=== PATIENT | female | born 1965 | race African-American/Black ===

== ENCOUNTER 2016-04-17 01:50 | Emergency (ER) | payer MEDICAID ==
[~2016-04-17] VITALS: Ht 162.6 cm; Wt 81.6 kg
[2016-04-17 02:41] LABS: Basophils # (auto) 0.1 uL; Basophils % (auto) 1.7 % (0.0-2.0); Eosinophils # (auto) 0.1 uL; Eosinophils % (auto) 0.9 % (0.0-7.0); Hematocrit 43.2 % (36.0-46.0); Hemoglobin 14.6 g/dL (12.2-16.2); Lymphocytes # (auto) 1.9 uL; Lymphocytes % (auto) 24.3 % (10.0-50.0); Mean Corpuscular Hemoglobin 30.6 pg (28.0-32.0); Mean Corpuscular Hgb Conc. 33.8 g/dL (32.0-36.0); Mean Corpuscular Volume 90.5 fL (80.0-100.0); Mean Platelet Volume 8.6 fL (7.4-10.4); Monocytes # (auto) 0.5 uL; Monocytes % (auto) 6.9 % (0.0-12.0); Neutrophils # (auto) 5.4 uL; Neutrophils % (auto) 66.2 % (37.0-80.0); Platelet Count (auto) 264 10^3/uL (140-450); Red Cell Distribution Width 12.4 % (11.6-16.0)
[2016-04-17 03:01] LABS: INR 1.14 (0.9-1.15); Partial Thromboplastin Time 26.5 sec (22.64-33.71); Prothrombin Time 11.7 sec (9.37-12.3)
[2016-04-17 03:06] LABS: Albumin 3.1 g/dL (3.4-5.0); Anion Gap 10 (5-15); Aspartate Aminotransferase 14 U/L (15-37); Blood Urea Nitrogen 5 mg/dL (7-18); Carbon Dioxide 27 mmol/L (21-32); Chloride 106 mmol/L (98-107); GFR African American 94 mL/min; GFR Non-African American 78 mL/min; Glucose 96 mg/dL (74-106); Potassium 3.1 mmol/L (3.5-5.1); Sodium 143 mmol/L (136-145)
[2016-04-17 03:11] LABS: Alkaline Phosphatase 126 U/L (45-117); Bilirubin, Total 0.4 mg/dL (0.2-1.0); Total Protein 7.2 g/dL (6.4-8.2)
[2016-04-17] MEDS ORDERED: ASPirin 81 mg TAB PO ONE (04:15)
[2016-04-17] MEDS ORDERED: ACETAMINOPHEN 325 MG TAB PO ONE (04:15)
[2016-04-17 04:19] LABS: B-Type Natriuretic Peptide 48.6 pg/mL (0-100); Temperature: 20.3 C (20.0-25.0)
[2016-04-17 06:36] VITALS: BP 165/97
== END 2016-04-17 08:38 | disposition home or self-care (01) ==
LOC: EDBD 01:50 → ER 01:52
DX: R07.89 Other chest pain (principal); I10 Essential (primary) hypertension; F17.210 Nicotine dependence, cigarettes, uncomplicated; F41.9 Anxiety disorder, unspecified; R55 Syncope and collapse
CPT/HCPCS: 36415; 70450; 71010; 80053; 83735; 83880; 84443; 84484; 85025; 85610; 85730; 93005; 94761

== ENCOUNTER 2018-05-13 00:37 | Emergency (ER) | payer MEDICAID ==
[~2018-05-13] VITALS: Ht 162.6 cm; Wt 68.0 kg
[2018-05-13 01:25] LABS: Basophils # (auto) 0.1 uL; Eosinophils # (auto) 0.2 uL; Eosinophils % (auto) 2.7 % (0.0-7.0); Hematocrit 42.6 % (36.0-46.0); Hemoglobin 14.4 g/dL (12.2-16.2); Lymphocytes # (auto) 2.9 uL; Lymphocytes % (auto) 40.4 % (10.0-50.0); Mean Corpuscular Hemoglobin 30.7 pg (28.0-32.0); Mean Corpuscular Hgb Conc. 33.8 g/dL (32.0-36.0); Mean Corpuscular Volume 90.8 fL (80.0-100.0); Monocytes # (auto) 0.6 uL; Monocytes % (auto) 7.9 % (0.0-12.0); Neutrophils # (auto) 3.5 uL; Nucleated Red Blood Cells % 0.1 %; Platelet Count (auto) 272 10^3/uL (140-450); Red Blood Cells 4.69 10^6/uL (4.0-5.20); Red Cell Distribution Width 13.8 % (11.8-14.3); White Blood Cell 7.3 10^3/uL (4.4-10.8)
[2018-05-13 01:46] LABS: Alanine Aminotransferase 20 U/L (13-56); Albumin 3.3 g/dL (3.4-5.0); Anion Gap 6 (5-15); Aspartate Aminotransferase 21 U/L (15-37); BUN/Creatinine Ratio 10.3; Blood Urea Nitrogen 9 mg/dL (7-18); Calcium 8.6 mg/dL (8.5-10.1); Carbon Dioxide 27 mmol/L (21-32); Chloride 104 mmol/L (98-107); GFR African American 88 mL/min; GFR Non-African American 73 mL/min; Glucose 103 mg/dL (74-106); Potassium 3.6 mmol/L (3.5-5.1); Sodium 137 mmol/L (136-145)
[2018-05-13 01:50] LABS: Alkaline Phosphatase 138 U/L (45-117); Bilirubin, Total 0.4 mg/dL (0.2-1.0); Total Protein 7.4 g/dL (6.4-8.2)
[2018-05-13 08:20] VITALS: BP 163/91
== END 2018-05-13 08:21 | disposition home or self-care (01) ==
LOC: EDUNIT# 00:37 → EDBD 00:37 → ER 00:40
DX: J44.9 Chronic obstructive pulmonary disease, unspecified (principal); I10 Essential (primary) hypertension; F17.210 Nicotine dependence, cigarettes, uncomplicated; R42 Dizziness and giddiness; Z90.49 Acquired absence of other specified parts of digestive tract
CPT/HCPCS: 36415; 71045; 80053; 84484; 85025; 93005

== ENCOUNTER 2021-03-19 17:49 | Inpatient (IN) | payer MEDICAID ==
[~2021-03-19] VITALS: Ht 167.6 cm; Wt 52.2 kg
[2021-03-19 19:45] LABS: Basophils # (auto) 0.1 10 ^3/uL (0-0.2); Eosinophils # (auto) 0.1 10 ^3/uL (0-0.8); Lymphocytes # (auto) 2.5 10 ^3/uL (0.4-5.4); Monocytes # (auto) 0.4 10 ^3/uL (0-1.3); Neutrophils # (auto) 2.1 10 ^3/uL (1.6-8.6); White Blood Cell 5.1 10^3/uL (4.4-10.8)
[2021-03-19 19:47] LABS: Basophils % (auto) 1.2 % (0.0-2.0); Eosinophils % (auto) 2.2 % (0.0-7.0); Hematocrit 36.3 % (36.0-46.0); Hemoglobin 11.8 g/dL (12.2-16.2); Lymphocytes % (auto) 48.3 % (10.0-50.0); Mean Corpuscular Hemoglobin 24.3 pg (28.0-32.0); Mean Corpuscular Hgb Conc. 32.4 g/dL (32.0-36.0); Mean Corpuscular Volume 74.9 fL (80.0-100.0); Monocytes % (auto) 8.2 % (0.0-12.0); Neutrophils % (auto) 40.1 % (37.0-80.0); Nucleated Red Blood Cells % 0.1 %; Red Blood Cells 4.85 10^6/uL (4.0-5.20)
[2021-03-19 19:51] LABS: Red Cell Distribution Width 20.1 % (11.8-14.3)
[2021-03-19 20:03] LABS: Albumin 3.4 g/dL (3.4-5.0); BUN/Creatinine Ratio 2.7; Calcium 8.6 mg/dL (8.5-10.1)
[2021-03-19 20:06] LABS: Bilirubin, Total 0.4 mg/dL (0.2-1.0); Total Protein 7.8 g/dL (6.4-8.2)
[2021-03-19 20:34] LABS: Potassium 2.5 mmol/L (3.5-5.1)
[2021-03-19] MEDS ORDERED: POTASSIUM CHL 20 Meq TABLET PO ONE (20:45)
[2021-03-19] MEDS: POTASSIUM CHL 10MEQ/50ML 50 ML IV SCH ×2 (21:30→22:55)
[2021-03-19] MEDS ORDERED: HYDROcodone-ACET 5/325MG TAB PO ONE (22:15)
[2021-03-20] MEDS ORDERED: MORPHINE SULFATE INJECTION 2 MG/ML SYRG IV PRN
[2021-03-20] MEDS ORDERED: ACETAMINOPHEN 325 MG TAB PO PRN
[2021-03-20] MEDS ORDERED: ONDANSETRON HCL 4 MG/2 ML VIAL IV PRN
[2021-03-20] MEDS ORDERED: NITROGLYCERIN 0.4 MG SL TAB SL PRN
[2021-03-20] MEDS ORDERED: DOCUSATE SOD 100 MG CAP PO PRN
[2021-03-20] MEDS: POTASSIUM CHL 10MEQ/50ML 50 ML IV SCH ×4 (04:28→09:11)
[2021-03-20] MEDS: HYDROcodone-ACET 5/325MG TAB PO PRN ×2 (04:37→12:50)
[2021-03-20 05:03] VITALS: BP 171/90
[2021-03-20] MEDS ORDERED: TRAM50TA2 PO (05:41)
[2021-03-20] MEDS ORDERED: HYDR-4798 PO (05:41)
[2021-03-20] MEDS ORDERED: FLUT110A IN (05:41)
[2021-03-20] MEDS ORDERED: GABA300C10 PO (05:41)
[2021-03-20] MEDS ORDERED: ATOR20TA PO (05:41)
[2021-03-20] MEDS ORDERED: AMLO-489 PO (05:41)
[2021-03-20] MEDS: LABETALOL HCL 5 MG/ML 4ML SYRINGE IV PRN ×2 (08:29→18:06)
[2021-03-20] MEDS ORDERED: POTASSIUM CHL 10MEQ/50ML 50 ML IV SCH (08:45)
[2021-03-20 09:06] VITALS: BP 192/98
[2021-03-20] MEDS: ZINC SULFATE 220mg CAP or TAB PO SCH (09:12)
[2021-03-20] MEDS: ENOXAPARIN SOD 40 MG/0.4 ML SYRINGE SC SCH (09:13)
[2021-03-20] MEDS: ASCORBIC ACID 500 MG TAB PO SCH ×2 (09:13→21:04)
[2021-03-20] MEDS: MULTIPLE VITAMIN TAB PO SCH (09:13)
[2021-03-20 11:49] VITALS: BP 176/85
[2021-03-20] MEDS: diphenhdrAMINE HCL 25 MG CAP PO SCH ×2 (14:45→21:04)
[2021-03-20] MEDS: GABAPENTIN 300 MG CAP PO SCH ×2 (14:45→21:04)
[2021-03-20] MEDS: NIFEdipine ER 30 MG TAB PO SCH (14:46)
[2021-03-20 16:32] VITALS: BP 179/93
[2021-03-20] MEDS: HYDROcodone-ACET 10/325MG TAB PO PRN (20:37)
[2021-03-20] MEDS: FAMOTIDINE (10MG/ML) 2ML VL IV SCH (21:03)
[2021-03-20] MEDS: hydrALAZINE HCL 25 MG TAB PO SCH (21:04)
[2021-03-20 22:00] VITALS: BP 143/73
[2021-03-21 05:00] VITALS: BP 141/80
[2021-03-21 07:13] LABS: Basophils # (auto) 0.1 10 ^3/uL (0-0.2); Basophils % (auto) 0.9 % (0.0-2.0); Eosinophils # (auto) 0.1 10 ^3/uL (0-0.8); Eosinophils % (auto) 1.9 % (0.0-7.0); Hematocrit 35.8 % (36.0-46.0); Hemoglobin 11.2 g/dL (12.2-16.2); Lymphocytes # (auto) 2.3 10 ^3/uL (0.4-5.4); Lymphocytes % (auto) 34.3 % (10.0-50.0); Mean Corpuscular Hgb Conc. 31.2 g/dL (32.0-36.0); Monocytes # (auto) 0.6 10 ^3/uL (0-1.3); Monocytes % (auto) 9.6 % (0.0-12.0); Neutrophils # (auto) 3.5 10 ^3/uL (1.6-8.6); Neutrophils % (auto) 53.3 % (37.0-80.0); White Blood Cell 6.6 10^3/uL (4.4-10.8)
[2021-03-21 07:18] LABS: Mean Corpuscular Hemoglobin 23.3 pg (28.0-32.0); Mean Corpuscular Volume 74.5 fL (80.0-100.0); Red Cell Distribution Width 20.6 % (11.8-14.3)
[2021-03-21 07:54] LABS: Albumin 3.1 g/dL (3.4-5.0); BUN/Creatinine Ratio 4.3; Bilirubin, Total 0.4 mg/dL (0.2-1.0); Calcium 8.4 mg/dL (8.5-10.1); Total Protein 7.3 g/dL (6.4-8.2)
[2021-03-21] MEDS: HYDROcodone-ACET 10/325MG TAB PO PRN ×4 (07:55→22:51)
[2021-03-21 08:01] LABS: Potassium 2.1 mmol/L (3.5-5.1)
[2021-03-21] MEDS ORDERED: POTASSIUM CHL 20 Meq TABLET PO ONE (08:15)
[2021-03-21 08:41] VITALS: BP 143/70
[2021-03-21] MEDS: POTASSIUM CHL 10MEQ/50ML 50 ML IV SCH ×3 (08:47→10:31)
[2021-03-21] MEDS: ZINC SULFATE 220mg CAP or TAB PO SCH (09:34)
[2021-03-21] MEDS: predniSONE 20 MG TAB PO SCH (09:34)
[2021-03-21] MEDS: hydrALAZINE HCL 25 MG TAB PO SCH ×2 (09:35→22:47)
[2021-03-21] MEDS: MULTIPLE VITAMIN TAB PO SCH (09:35)
[2021-03-21] MEDS: ATORVASTATIN 20 MG TAB PO SCH (09:35)
[2021-03-21] MEDS: NIFEdipine ER 30 MG TAB PO SCH (09:36)
[2021-03-21] MEDS: amLODIPine BESYLATE 5 MG TAB PO SCH (09:36)
[2021-03-21] MEDS: ENOXAPARIN SOD 40 MG/0.4 ML SYRINGE SC SCH (09:37)
[2021-03-21] MEDS: ASCORBIC ACID 500 MG TAB PO SCH ×2 (09:37→22:50)
[2021-03-21] MEDS ORDERED: POTASSIUM CHL 10MEQ/50ML 50 ML IV SCH (11:45)
[2021-03-21 13:00] VITALS: BP 138/81
[2021-03-21] MEDS: GABAPENTIN 300 MG CAP PO SCH ×3 (14:00→22:49)
[2021-03-21] MEDS: diphenhdrAMINE HCL 25 MG CAP PO SCH ×3 (14:00→22:00)
[2021-03-21 14:25] LABS: BUN/Creatinine Ratio 5.1; Calcium 8.8 mg/dL (8.5-10.1); Magnesium 2.9 mg/dL (1.6-2.6); Potassium 3.3 mmol/L (3.5-5.1)
[2021-03-21 16:53] VITALS: BP 121/69
[2021-03-21] MEDS: FAMOTIDINE (10MG/ML) 2ML VL IV SCH (22:46)
[2021-03-22] MEDS: HYDROcodone-ACET 10/325MG TAB PO PRN (04:52)
[2021-03-22 07:03] LABS: Basophils # (auto) 0.1 10 ^3/uL (0-0.2); Basophils % (auto) 0.9 % (0.0-2.0); Eosinophils # (auto) 0.1 10 ^3/uL (0-0.8); Eosinophils % (auto) 1.6 % (0.0-7.0); Hematocrit 36.4 % (36.0-46.0); Hemoglobin 11.5 g/dL (12.2-16.2); Lymphocytes # (auto) 2.7 10 ^3/uL (0.4-5.4); Lymphocytes % (auto) 41.8 % (10.0-50.0); Mean Corpuscular Hemoglobin 23.6 pg (28.0-32.0); Mean Corpuscular Hgb Conc. 31.7 g/dL (32.0-36.0); Mean Corpuscular Volume 74.4 fL (80.0-100.0); Monocytes # (auto) 0.7 10 ^3/uL (0-1.3); Monocytes % (auto) 10.4 % (0.0-12.0); Neutrophils % (auto) 45.3 % (37.0-80.0); Nucleated Red Blood Cells % 0.3 %; Red Blood Cells 4.89 10^6/uL (4.0-5.20); Red Cell Distribution Width 20.1 % (11.8-14.3); White Blood Cell 6.6 10^3/uL (4.4-10.8)
[2021-03-22] MEDS: diphenhdrAMINE HCL 25 MG CAP PO SCH (07:41)
[2021-03-22] MEDS: GABAPENTIN 300 MG CAP PO SCH ×3 (07:42→21:46)
[2021-03-22 08:30] VITALS: BP 141/84
[2021-03-22] MEDS: ZINC SULFATE 220mg CAP or TAB PO SCH (09:15)
[2021-03-22] MEDS: hydrALAZINE HCL 25 MG TAB PO SCH ×2 (09:16→21:45)
[2021-03-22] MEDS: MULTIPLE VITAMIN TAB PO SCH (09:16)
[2021-03-22] MEDS: ASCORBIC ACID 500 MG TAB PO SCH ×2 (09:16→21:46)
[2021-03-22] MEDS: amLODIPine BESYLATE 5 MG TAB PO SCH (09:16)
[2021-03-22] MEDS: predniSONE 20 MG TAB PO SCH (09:16)
[2021-03-22] MEDS: ATORVASTATIN 20 MG TAB PO SCH (09:16)
[2021-03-22] MEDS: ENOXAPARIN SOD 40 MG/0.4 ML SYRINGE SC SCH (09:17)
[2021-03-22] MEDS: HYDROcodone-ACET 5/325MG TAB PO PRN ×2 (13:33→20:33)
[2021-03-22 14:20] LABS: Urine WBC None Seen /hpf (0 - 5)
[2021-03-22 14:28] LABS: Urine Bacteria NONE SEEN /hpf (None Seen); Urine Blood Negative /uL (Negative); Urine Specific Gravity 1.006 (1.001-1.035)
[2021-03-22 14:35] VITALS: BP 164/83
[2021-03-22 14:46] LABS: Alcohol, Urine < 3.0 mg/dL (0-10); Amphetamine Screen, Urine NEGATIVE (NEGATIVE); Barbiturate Scree,Urine NEGATIVE (NEGATIVE); Benzodiazephine Screen, Urine NEGATIVE (NEGATIVE); Cannabinoid Screen, Urine NEGATIVE (NEGATIVE); Cocaine Screen, Urine NEGATIVE (NEGATIVE); Opiate Scree,Urine POSITIVE (NEGATIVE); Phencyclidine Screen, Urine NEGATIVE (NEGATIVE)
[2021-03-22 14:48] LABS: Protein, Urine 9.2 mg/dL (0.0-11.9)
[2021-03-22] MEDS ORDERED: IOHEXOL 300 MG/ML 100ML BOTTLE IJ ONE (15:12)
[2021-03-22 17:43] VITALS: BP 146/88
[2021-03-22] MEDS: FAMOTIDINE (10MG/ML) 2ML VL IV SCH (21:45)
[2021-03-22] MEDS: POTASSIUM CHL 20 Meq TABLET PO SCH (21:46)
[2021-03-22 21:49] VITALS: BP 149/84
[2021-03-23] MEDS: HYDROcodone-ACET 5/325MG TAB PO PRN ×3 (03:44→15:50)
[2021-03-23 05:16] VITALS: BP 153/91
[2021-03-23] MEDS: GABAPENTIN 300 MG CAP PO SCH ×3 (05:44→22:10)
[2021-03-23 06:36] LABS: Basophils # (auto) 0.1 10 ^3/uL (0-0.2); Eosinophils # (auto) 0.1 10 ^3/uL (0-0.8); Lymphocytes # (auto) 3.2 10 ^3/uL (0.4-5.4); Nucleated Red Blood Cells % 0.2 %
[2021-03-23 06:41] LABS: Basophils % (auto) 1.2 % (0.0-2.0); Hematocrit 37.5 % (36.0-46.0); Hemoglobin 11.6 g/dL (12.2-16.2); Mean Corpuscular Hgb Conc. 30.9 g/dL (32.0-36.0); Monocytes # (auto) 0.8 10 ^3/uL (0-1.3); Monocytes % (auto) 9.9 % (0.0-12.0); Neutrophils # (auto) 3.8 10 ^3/uL (1.6-8.6); Neutrophils % (auto) 47.9 % (37.0-80.0); Red Blood Cells 5.05 10^6/uL (4.0-5.20)
[2021-03-23 06:49] LABS: Mean Corpuscular Hemoglobin 22.9 pg (28.0-32.0); Mean Corpuscular Volume 74.2 fL (80.0-100.0)
[2021-03-23 06:50] LABS: Red Cell Distribution Width 20.5 % (11.8-14.3)
[2021-03-23 07:00] LABS: Calcium 8.6 mg/dL (8.5-10.1)
[2021-03-23 07:04] LABS: Potassium 2.9 mmol/L (3.5-5.1)
[2021-03-23 08:15] VITALS: BP 143/90
[2021-03-23] MEDS: MULTIPLE VITAMIN TAB PO SCH (09:15)
[2021-03-23] MEDS: ASCORBIC ACID 500 MG TAB PO SCH ×2 (09:16→22:11)
[2021-03-23] MEDS: POTASSIUM CHL 20 Meq TABLET PO SCH ×2 (09:16→22:10)
[2021-03-23] MEDS: amLODIPine BESYLATE 5 MG TAB PO SCH (09:16)
[2021-03-23] MEDS: predniSONE 20 MG TAB PO SCH (09:16)
[2021-03-23] MEDS: ATORVASTATIN 20 MG TAB PO SCH (09:17)
[2021-03-23] MEDS: ENOXAPARIN SOD 40 MG/0.4 ML SYRINGE SC SCH (09:17)
[2021-03-23] MEDS: hydrALAZINE HCL 25 MG TAB PO SCH ×2 (09:17→22:10)
[2021-03-23] MEDS: ZINC SULFATE 220mg CAP or TAB PO SCH (09:18)
[2021-03-23] MEDS ORDERED: POTASSIUM CHL 20 Meq TABLET PO ONE (11:15)
[2021-03-23] MEDS: SPIRONOLACTONE 25 MG TAB PO SCH (12:20)
[2021-03-23 13:00] VITALS: BP 146/96
[2021-03-23 14:27] LABS: Creatinine, Urine 26 mg/dL (30.0-125.0)
[2021-03-23 16:35] VITALS: BP 153/84
[2021-03-23 22:03] VITALS: BP 177/103
[2021-03-23] MEDS: FAMOTIDINE (10MG/ML) 2ML VL IV SCH (22:09)
[2021-03-23] MEDS: MORPHINE SULFATE 4 MG/ML SYR/VIAL IV PRN (22:12)
[2021-03-23] MEDS: TEMAZEPAM 15 MG CAP PO PRN (22:13)
[2021-03-24] MEDS: MORPHINE SULFATE 4 MG/ML SYR/VIAL IV PRN ×3 (03:50→21:04)
[2021-03-24] MEDS ORDERED: LABETALOL HCL 5 MG/ML ML 20ML VIAL IV ONE (03:57)
[2021-03-24] MEDS: LABETALOL HCL 5 MG/ML 4ML SYRINGE IV PRN (04:06)
[2021-03-24 05:23] VITALS: BP 158/80
[2021-03-24 06:00] LABS: Basophils # (auto) 0.1 10 ^3/uL (0-0.2); Eosinophils # (auto) 0.1 10 ^3/uL (0-0.8); Lymphocytes # (auto) 3.2 10 ^3/uL (0.4-5.4); Nucleated Red Blood Cells % 0.1 %
[2021-03-24 06:04] LABS: Basophils % (auto) 0.9 % (0.0-2.0); Eosinophils % (auto) 0.8 % (0.0-7.0); Hematocrit 36.5 % (36.0-46.0); Hemoglobin 11.4 g/dL (12.2-16.2); Lymphocytes % (auto) 42.2 % (10.0-50.0); Mean Corpuscular Hemoglobin 23.3 pg (28.0-32.0); Mean Corpuscular Hgb Conc. 31.3 g/dL (32.0-36.0); Mean Corpuscular Volume 74.6 fL (80.0-100.0); Monocytes # (auto) 0.8 10 ^3/uL (0-1.3); Monocytes % (auto) 10.1 % (0.0-12.0); Neutrophils # (auto) 3.5 10 ^3/uL (1.6-8.6); Red Blood Cells 4.89 10^6/uL (4.0-5.20); White Blood Cell 7.7 10^3/uL (4.4-10.8)
[2021-03-24 06:10] LABS: Red Cell Distribution Width 20.9 % (11.8-14.3)
[2021-03-24 06:17] LABS: Calcium 8.7 mg/dL (8.5-10.1); Potassium 3.2 mmol/L (3.5-5.1)
[2021-03-24] MEDS: GABAPENTIN 300 MG CAP PO SCH ×3 (06:20→21:03)
[2021-03-24 09:00] VITALS: BP 140/80
[2021-03-24] MEDS: HYDROcodone-ACET 5/325MG TAB PO PRN (09:00)
[2021-03-24] MEDS: predniSONE 20 MG TAB PO SCH (09:01)
[2021-03-24] MEDS: POTASSIUM CHL 20 Meq TABLET PO SCH ×2 (09:01→21:02)
[2021-03-24] MEDS: SPIRONOLACTONE 25 MG TAB PO SCH (09:01)
[2021-03-24] MEDS: ATORVASTATIN 20 MG TAB PO SCH (09:01)
[2021-03-24] MEDS: ZINC SULFATE 220mg CAP or TAB PO SCH (09:01)
[2021-03-24] MEDS: MULTIPLE VITAMIN TAB PO SCH (09:02)
[2021-03-24] MEDS: hydrALAZINE HCL 25 MG TAB PO SCH ×2 (09:02→21:02)
[2021-03-24] MEDS: ASCORBIC ACID 500 MG TAB PO SCH ×2 (09:02→21:03)
[2021-03-24] MEDS: amLODIPine BESYLATE 5 MG TAB PO SCH (09:02)
[2021-03-24] MEDS: ENOXAPARIN SOD 40 MG/0.4 ML SYRINGE SC SCH (09:03)
[2021-03-24 12:59] VITALS: BP 134/69
[2021-03-24 17:00] VITALS: BP 168/87
[2021-03-24] MEDS: FAMOTIDINE (10MG/ML) 2ML VL IV SCH (21:01)
[2021-03-24] MEDS: TEMAZEPAM 15 MG CAP PO PRN (21:04)
[2021-03-25] MEDS: MORPHINE SULFATE 4 MG/ML SYR/VIAL IV PRN ×4 (04:44→22:11)
[2021-03-25 06:04] LABS: Basophils # (auto) 0.1 10 ^3/uL (0-0.2); Eosinophils # (auto) 0 10 ^3/uL (0-0.8); Eosinophils % (auto) 0.6 % (0.0-7.0); White Blood Cell 7.9 10^3/uL (4.4-10.8)
[2021-03-25 06:09] LABS: Basophils % (auto) 1.1 % (0.0-2.0); Hematocrit 37.4 % (36.0-46.0); Hemoglobin 11.8 g/dL (12.2-16.2); Lymphocytes # (auto) 3.2 10 ^3/uL (0.4-5.4); Mean Corpuscular Hemoglobin 23.6 pg (28.0-32.0); Mean Corpuscular Hgb Conc. 31.5 g/dL (32.0-36.0); Monocytes % (auto) 13.3 % (0.0-12.0); Neutrophils # (auto) 3.5 10 ^3/uL (1.6-8.6); Red Blood Cells 4.98 10^6/uL (4.0-5.20)
[2021-03-25] MEDS: GABAPENTIN 300 MG CAP PO SCH ×3 (06:21→22:08)
[2021-03-25 06:26] LABS: Calcium 8.8 mg/dL (8.5-10.1); Potassium 3.9 mmol/L (3.5-5.1)
[2021-03-25 06:28] LABS: BUN/Creatinine Ratio 3.1
[2021-03-25 06:30] LABS: Red Cell Distribution Width 20.7 % (11.8-14.3)
[2021-03-25 09:00] VITALS: BP 157/80
[2021-03-25] MEDS: predniSONE 20 MG TAB PO SCH (09:13)
[2021-03-25] MEDS: SPIRONOLACTONE 25 MG TAB PO SCH (09:13)
[2021-03-25] MEDS: ZINC SULFATE 220mg CAP or TAB PO SCH (09:13)
[2021-03-25] MEDS: hydrALAZINE HCL 25 MG TAB PO SCH ×2 (09:14→22:06)
[2021-03-25] MEDS: POTASSIUM CHL 20 Meq TABLET PO SCH ×2 (09:14→22:07)
[2021-03-25] MEDS: ATORVASTATIN 20 MG TAB PO SCH (09:14)
[2021-03-25] MEDS: amLODIPine BESYLATE 5 MG TAB PO SCH (09:15)
[2021-03-25] MEDS: ASCORBIC ACID 500 MG TAB PO SCH ×2 (09:15→22:10)
[2021-03-25] MEDS: ENOXAPARIN SOD 40 MG/0.4 ML SYRINGE SC SCH (09:15)
[2021-03-25] MEDS: MULTIPLE VITAMIN TAB PO SCH (09:16)
[2021-03-25 13:00] VITALS: BP 148/86
[2021-03-25] MEDS: HYDROcodone-ACET 5/325MG TAB PO PRN (13:07)
[2021-03-25 17:00] VITALS: BP 138/90
[2021-03-25] MEDS ORDERED: IOHEXOL 300 MG/ML 100ML BOTTLE IJ ONE (20:43)
[2021-03-25] MEDS: FAMOTIDINE (10MG/ML) 2ML VL IV SCH (22:06)
[2021-03-25] MEDS: ENALAPRIL MALEATE 2.5 MG TAB PO SCH (22:10)
[2021-03-26] MEDS: MORPHINE SULFATE 4 MG/ML SYR/VIAL IV PRN ×3 (02:34→13:58)
[2021-03-26] MEDS: GABAPENTIN 300 MG CAP PO SCH ×2 (05:09→14:00)
[2021-03-26 05:10] VITALS: BP 123/67
[2021-03-26 05:23] LABS: Basophils # (auto) 0.1 10 ^3/uL (0-0.2); Eosinophils # (auto) 0.1 10 ^3/uL (0-0.8); Mean Corpuscular Hgb Conc. 30.7 g/dL (32.0-36.0); Monocytes # (auto) 0.8 10 ^3/uL (0-1.3); Nucleated Red Blood Cells % 0.2 %; White Blood Cell 8.2 10^3/uL (4.4-10.8)
[2021-03-26 05:26] LABS: Basophils % (auto) 0.9 % (0.0-2.0); Eosinophils % (auto) 1.2 % (0.0-7.0); Hematocrit 37.7 % (36.0-46.0); Hemoglobin 11.6 g/dL (12.2-16.2); Lymphocytes # (auto) 3.7 10 ^3/uL (0.4-5.4); Lymphocytes % (auto) 45.1 % (10.0-50.0); Mean Corpuscular Hemoglobin 23.1 pg (28.0-32.0); Mean Corpuscular Volume 75.3 fL (80.0-100.0); Monocytes % (auto) 9.8 % (0.0-12.0); Neutrophils # (auto) 3.5 10 ^3/uL (1.6-8.6)
[2021-03-26 05:38] LABS: Calcium 9.3 mg/dL (8.5-10.1); Potassium 3.6 mmol/L (3.5-5.1)
[2021-03-26 05:57] LABS: Red Cell Distribution Width 20.6 % (11.8-14.3)
[2021-03-26] MEDS: POTASSIUM CHL 20 Meq TABLET PO SCH (08:38)
[2021-03-26] MEDS: ZINC SULFATE 220mg CAP or TAB PO SCH (08:38)
[2021-03-26] MEDS: ENOXAPARIN SOD 40 MG/0.4 ML SYRINGE SC SCH (08:38)
[2021-03-26] MEDS: ASCORBIC ACID 500 MG TAB PO SCH (08:38)
[2021-03-26] MEDS: predniSONE 20 MG TAB PO SCH (08:39)
[2021-03-26] MEDS: ATORVASTATIN 20 MG TAB PO SCH (08:39)
[2021-03-26] MEDS: amLODIPine BESYLATE 5 MG TAB PO SCH (08:39)
[2021-03-26] MEDS: SPIRONOLACTONE 25 MG TAB PO SCH (08:39)
[2021-03-26] MEDS: MULTIPLE VITAMIN TAB PO SCH (08:40)
[2021-03-26] MEDS: hydrALAZINE HCL 25 MG TAB PO SCH (08:40)
[2021-03-26] MEDS: ENALAPRIL MALEATE 2.5 MG TAB PO SCH (08:40)
[2021-03-26 08:49] VITALS: BP 142/71
[2021-03-26 13:00] VITALS: BP 126/60
[2021-03-26 17:00] VITALS: BP 132/82
[2021-03-26] MEDS ORDERED: HYDR25TA87 PO (17:18)
[2021-03-26] MEDS ORDERED: AML5T PO (17:18)
[2021-03-26] MEDS ORDERED: POTA-220 PO (17:18)
[2021-03-26] MEDS ORDERED: ENAL2.5T7 PO (17:18)
[2021-03-26] MEDS ORDERED: ATOR20TA50 PO (17:18)
[2021-03-26] MEDS ORDERED: GABA300C10 PO (17:18)
[2021-03-26] MEDS ORDERED: SPIR25TA PO (17:18)
[2021-03-26 17:32] VITALS: BP 132/82
== END 2021-03-26 18:41 | disposition home or self-care (01) | DRG 425 ==
LOC: ER 17:55 → OBSVTOIN 23:58 → TELE 23:58 → TELE-WESTW 03-20 02:12
PROVIDERS: ADMIT Internal Medicine; ATTEND Internal Medicine
DX: E87.6 Hypokalemia (principal); D64.9 Anemia, unspecified; I16.0 Hypertensive urgency; E16.2 Hypoglycemia, unspecified; I10 Essential (primary) hypertension; J44.9 Chronic obstructive pulmonary disease, unspecified; F17.210 Nicotine dependence, cigarettes, uncomplicated; M79.604 Pain in right leg; Z20.822 Contact with and (suspected) exposure to COVID-19; R74.8 Abnormal levels of other serum enzymes; R21 Rash and other nonspecific skin eruption; R51.9 Headache, unspecified; Z79.899 Other long term (current) drug therapy; Z90.49 Acquired absence of other specified parts of digestive tract
CPT/HCPCS: 36415; 72148; 73701; 74178; 80048; 80053; 80307; 81001; 82088; 82550; 82570; 83735; 83835; 84100; 84132; 84133; 84156; 84244; 84300; 84443; 84550; 85025; 87040; 87426; 93005; 93306; 93970; 93975; 96365; G0378; J2405; J3490

== ENCOUNTER 2021-07-29 17:07 | Emergency (ER) | payer MEDICAID ==
[~2021-07-29] VITALS: Ht 154.9 cm; Wt 50.8 kg
[2021-07-29 17:07] VITALS: BP 147/62
[~2021-07-29 17:07] MED LIST: AML5T PO; AMLO-489 PO; ATOR20TA50 PO; ENAL2.5T7 PO; FLUT110A IN; GABA300C10 PO; HYDR-4798 PO; HYDR25TA87 PO; POTA-220 PO; SPIR25TA PO
[2021-07-29] MEDS ORDERED: ONDANSETRON HCL 4 MG/2 ML VIAL IV ONE (17:30)
[2021-07-29] MEDS ORDERED: MORPHINE SULFATE 4 MG/ML SYR/VIAL IV ONE (17:30)
[2021-07-29 18:37] LABS: Basophils # (auto) 0.1 10 ^3/uL (0-0.2); Basophils % (auto) 1.1 % (0.0-2.0); Eosinophils # (auto) 0.1 10 ^3/uL (0-0.8); Hematocrit 40.9 % (36.0-46.0); Hemoglobin 13.5 g/dL (12.2-16.2); Lymphocytes # (auto) 2.4 10 ^3/uL (0.4-5.4); Lymphocytes % (auto) 43.5 % (10.0-50.0); Mean Corpuscular Hemoglobin 27.8 pg (28.0-32.0); Mean Corpuscular Hgb Conc. 32.9 g/dL (32.0-36.0); Mean Corpuscular Volume 84.3 fL (80.0-100.0); Monocytes # (auto) 0.4 10 ^3/uL (0-1.3); Monocytes % (auto) 7.4 % (0.0-12.0); Neutrophils # (auto) 2.6 10 ^3/uL (1.6-8.6); Red Blood Cells 4.85 10^6/uL (4.0-5.20); Red Cell Distribution Width 17.7 % (11.8-14.3); White Blood Cell 5.6 10^3/uL (4.4-10.8)
[2021-07-29 18:38] LABS: BUN/Creatinine Ratio 5.9; Calcium 9.2 mg/dL (8.5-10.1); Magnesium 2.1 mg/dL (1.6-2.6); Potassium 4.8 mmol/L (3.5-5.1)
[2021-07-29 18:58] LABS: INR 1.12 (0.9-1.15); Partial Thromboplastin Time 26.8 sec (23.6-33.0)
== END 2021-07-29 23:59 | disposition left against medical advice (07) ==
LOC: ER 17:07
DX: M79.601 Pain in right arm (principal); I10 Essential (primary) hypertension; J44.9 Chronic obstructive pulmonary disease, unspecified; F17.210 Nicotine dependence, cigarettes, uncomplicated; Z90.49 Acquired absence of other specified parts of digestive tract; Z79.899 Other long term (current) drug therapy; Z88.8 Allergy status to other drugs, medicaments and biological substances
CPT/HCPCS: 36415; 71046; 73030; 80048; 83735; 84484; 85025; 85610; 85730; 93005